=== PATIENT | female | born 1995 | race Caucasian/White ===

== ENCOUNTER 2019-09-06 14:04 | Inpatient (IN) ==
[2019-09-06 15:39] LABS: Urine TP Concentration 23 mg/dL
[2019-09-06] MEDS ORDERED: Lactated Ringers 1000 ml BAG 1,000 ML IV ONE (15:42)
[2019-09-06 17:02] LABS: ABS Basophils 0.1 10^3/ul (0-0.2); ABS Eosinophils 0.1 10^3/ul (0-0.6); ABS Lymphocytes 2.8 10^3/ul (1.0-4.8); ABS Monocytes 0.5 10^3/ul (0-0.8); Eosinophil % 0.7 %; Hematocrit 38 % (35-47); Hemoglobin 12.7 g/dL (12.0-16.0); Lymphocyte % 17.8 %; Mean Corpuscular HGB Conc 34 g/dL (31-36); Mean Corpuscular Hemoglobin 28 pg (27-31); Mean Corpuscular Volume 84 fL (80-97); Platelet Count 343 10^3/uL (150-450); Red Blood Count 4.51 10^6 /uL (3.70-4.87); Red Cell Distribution Width 14 % (10-15); White Blood Count 15.7 10^3/uL (3.5-10.8)
[2019-09-06 17:18] LABS: Albumin 3.4 g/dL (3.2-5.2); Albumin/Globulin Ratio 1.1 (1-3); BUN/Creatinine Ratio 24.1 (8-20); Calcium 9.4 mg/dL (8.6-10.3); EGFR African American 155.9 (>60); EGFR Non-African American 128.8 (>60); Globulin 3.2 g/dL (2-4); Potassium 4.1 mmol/L (3.5-5.0); Total Bilirubin 0.2 mg/dL (0.2-1.0); Total Protein 6.6 g/dL (6.4-8.9)
[2019-09-06 18:20] LABS: Urine Benzodiazepine Screen None Detected (None Detect); Urine Opiates Screen None Detected (None Detect)
[2019-09-06] MEDS ORDERED: Dinoprostone 10 MG VAG.SUPP VAGINAL ONE (20:11)
[2019-09-07] MEDS ORDERED: Oxytocin in LR 20 UNITS/1,000 ML BAG IVPB SCH (10:00)
[2019-09-07] MEDS: Lactated Ringers 1000 ml BAG 1,000 ML IV SCH (19:05)
[2019-09-07 19:54] LABS: ABS Basophils 0.1 10^3/ul (0-0.2); ABS Lymphocytes 1.8 10^3/ul (1.0-4.8); ABS Monocytes 0.6 10^3/ul (0-0.8); Eosinophil % 0.1 %; Hematocrit 36 % (35-47); Hemoglobin 12.2 g/dL (12.0-16.0); Lymphocyte % 8.9 %; Mean Corpuscular HGB Conc 34 g/dL (31-36); Mean Corpuscular Hemoglobin 28 pg (27-31); Mean Corpuscular Volume 82 fL (80-97); Platelet Count 317 10^3/uL (150-450); Red Blood Count 4.37 10^6 /uL (3.70-4.87); Red Cell Distribution Width 14 % (10-15); White Blood Count 20.6 10^3/uL (3.5-10.8)
[2019-09-07 20:17] LABS: Uric Acid 4.5 mg/dL (2.3-6.6)
[2019-09-07 21:22] LABS: Calcium 8.9 mg/dL (8.6-10.3); Potassium 3.9 mmol/L (3.5-5.0); Total Bilirubin 0.4 mg/dL (0.2-1.0)
[2019-09-07 21:27] LABS: Albumin/Globulin Ratio 1.2 (1-3); BUN/Creatinine Ratio 16.3 (8-20); EGFR African American 189.4 (>60); EGFR Non-African American 156.5 (>60); Globulin 2.5 g/dL (2-4); Total Protein 5.5 g/dL (6.4-8.9)
[2019-09-08] MEDS: Lactated Ringers 1000 ml BAG 1,000 ML IV SCH (00:30)
[2019-09-08] MEDS ORDERED: OBEPIDURAL 250 ML EPIDURAL ONE (00:59)
[2019-09-08] MEDS ORDERED: Lactated Ringers 1000 ml BAG 1,000 ML IV ONE (02:08)
[2019-09-08] MEDS ORDERED: EPHEDrine (Pressors) 50 MG/ML VIAL IV PUSH PRN ×2 (02:08)
[2019-09-08] MEDS ORDERED: Phenylephrine 40 mcg/mL 10mL (400mcg) SYRINGE IV PUSH PRN ×2 (02:08)
[2019-09-08] MEDS ORDERED: Sodium Citrate/Citric Acid LIQ 15 ML UDC PO PRN (02:08)
[2019-09-08] MEDS ORDERED: Sodium Citrate/Citric Acid LIQ 15 ML UDC ONE (02:31)
[2019-09-08] MEDS ORDERED: ceFOXitin 2 GM IVPREMIX 2 GM/50 ML BAG ONE (02:37)
[2019-09-08] MEDS ORDERED: Lidocaine 2% PF 10 ML AMP ONE (02:59)
[2019-09-08] MEDS ORDERED: Lactated Ringers 1000 ml BAG 1,000 ML IV SCH ×2 (03:00→05:00)
[2019-09-08] MEDS ORDERED: OBEPIDURAL 250 ML EPIDURAL SCH (03:00)
[2019-09-08] MEDS ORDERED: fentaNYL 100 mcg/2 ml 50 MCG/ML VIAL ONE (03:27)
[2019-09-08] MEDS ORDERED: Naloxone 0.4 mg VIAL 0.4 mg/ml 1 ml VIAL IV PRN ×2 (03:32→03:34)
[2019-09-08] MEDS ORDERED: fentaNYL 100 mcg/2 ml 50 MCG/ML VIAL IV PRN (03:32)
[2019-09-08] MEDS ORDERED: Ondansetron 4 mg VIAL 2 MG/ML 2 ml VIAL IV PRN ×2 (03:32→03:34)
[2019-09-08] MEDS ORDERED: DiMENhydriNATE IV 50 mg/ml 1 ml VIAL IV PUSH PRN (03:34)
[2019-09-08] MEDS ORDERED: Prochlorperazine 5 mg/ml 2 ml VIAL (10 mg) IV PRN (03:34)
[2019-09-08] MEDS ORDERED: diPHENhydraMINE IV 50 MG/ML 1 ml VIAL (BENADRYL) IV PRN (03:34)
[2019-09-08] MEDS ORDERED: Oxytocin 10 UNITS/ML 1 ML VIAL ONE (03:37)
[2019-09-08] MEDS ORDERED: Morphine PF AMP (0.5MG/ML) 5 MG/10 ML AMP ONE (03:38)
[2019-09-08] MEDS ORDERED: Ondansetron 4 mg VIAL 2 MG/ML 2 ml VIAL ONE (03:42)
[2019-09-08] MEDS ORDERED: Dibucaine 1% OINT 28.35 GM TUBE PR PRN (04:54)
[2019-09-08] MEDS ORDERED: Witch Hazel PAD JAR TOPICAL PRN (04:54)
[2019-09-08] MEDS ORDERED: Glycerin ADULT 2.4 gm SUPP PR PRN (04:54)
[2019-09-08] MEDS: oxyCODONE/Acetamin 5/325 mg TAB PO PRN ×4 (05:06→18:55)
[2019-09-09 07:55] LABS: ABS Basophils 0.1 10^3/ul (0-0.2); ABS Eosinophils 0.1 10^3/ul (0-0.6); ABS Lymphocytes 3.5 10^3/ul (1.0-4.8); ABS Monocytes 0.8 10^3/ul (0-0.8); Eosinophil % 0.9 %; Hematocrit 29 % (35-47); Hemoglobin 9.9 g/dL (12.0-16.0); Lymphocyte % 25.6 %; Mean Corpuscular HGB Conc 34 g/dL (31-36); Mean Corpuscular Hemoglobin 28 pg (27-31); Mean Corpuscular Volume 84 fL (80-97); Mean Platelet Volume 7.7 fL (7.4-10.4); Nucleated Red Blood Cells % 0.1; Platelet Count 311 10^3/uL (150-450); Red Blood Count 3.49 10^6 /uL (3.70-4.87); Red Cell Distribution Width 14 % (10-15); White Blood Count 13.6 10^3/uL (3.5-10.8)
[2019-09-09] MEDS ORDERED: Varicella Virus Vaccine Live 0.5 ML VIAL SUBCUT ONE (10:40)
[2019-09-10 07:45] VITALS: BP 140/70
[2019-09-11] MEDS ORDERED: Scopolamine PATCH Remove NOTE PATCH OFF PRN (03:34)
== END 2019-09-10 14:03 | disposition home or self-care (01) | DRG 540 ==
LOC: MCHOBOUT 14:04 → MCHOB 14:46
PROVIDERS: ADMIT Advanced Practice Midwife; ATTEND Obstetrics & Gynecology

== ENCOUNTER 2021-01-21 10:05 | Inpatient (IN) ==
[2021-01-21] MEDS ORDERED: Buffered Lidocaine 1% SYRIN 1 ml INTRADERM ONE (10:37)
[2021-01-21] MEDS ORDERED: Lactated Ringers 1000 ml BAG 1,000 ML IV SCH (11:00)
[2021-01-21 11:03] LABS: ABS Basophils 0.1 10^3/ul (0-0.2); ABS Eosinophils 0.1 10^3/ul (0-0.6); ABS Lymphocytes 2.3 10^3/ul (1.0-4.8); ABS Monocytes 0.6 10^3/ul (0-0.8); ABS Neutrophils 10.3 10^3/ul (1.5-7.7); Eosinophil % 0.8 %; Hematocrit 38 % (35-47); Hemoglobin 12.6 g/dL (12.0-16.0); Lymphocyte % 17.5 %; Mean Corpuscular HGB Conc 33 g/dL (31-36); Mean Corpuscular Hemoglobin 26 pg (27-31); Mean Corpuscular Volume 80 fL (80-97); Mean Platelet Volume 8.4 fL (7.4-10.4); Platelet Count 262 10^3/uL (150-450); Red Blood Count 4.79 10^6 /uL (3.70-4.87); Red Cell Distribution Width 14 % (10-15); White Blood Count 13.4 10^3/uL (3.5-10.8)
[2021-01-21 11:16] LABS: Urine Appearance Cloudy; Urine Bilirubin Negative (Negative); Urine Blood Negative (Negative); Urine Color Yellow; Urine Glucose Negative (Negative); Urine Ketones Negative (Negative); Urine Nitrite Negative (Negative); Urine Protein 2+(100 mg/dL) (Negative); Urine Urobilinogen Negative (Negative)
[2021-01-21 11:19] LABS: Urine Bacteria Absent (Absent); Urine Red Blood Cell Trace(0-2/hpf) (Absent); Urine Squamous Epithelial Cell Present (Absent); Urine White Blood Cell 1+(6-10/hpf) (Absent)
[2021-01-21 11:21] LABS: Urine Benzodiazepine Screen None Detected (None Detect); Urine Cannabinoids Screen None Detected (None Detect); Urine Opiates Screen None Detected (None Detect)
[2021-01-21 11:25] LABS: ALT 12 U/L (7-52); Albumin 3.2 g/dL (3.2-5.2); Alkaline Phosphatase 105 U/L (35-149); Blood Urea Nitrogen 15 mg/dL (6-24); CO2 Carbon Dioxide 19 mmol/L (22-32); Calcium 9.1 mg/dL (8.6-10.3); Chloride 106 mmol/L (101-111); Globulin 3.3 g/dL (2-4); Glucose 75 mg/dL (70-100); Sodium 133 mmol/L (135-145); Total Protein 6.5 g/dL (6.4-8.9)
[2021-01-21 11:47] LABS: Rapid COVID-19 Molecular Undetected (Undetected)
[2021-01-21 12:35] LABS: Uric Acid 3.2 mg/dL (2.3-6.6)
[2021-01-21 12:46] LABS: Anion Gap 8 mmol/L (2-11)
[2021-01-21 13:50] LABS: Potassium Redraw 4.1 mmol/L (3.5-5.0)
[2021-01-21] MEDS: Betamethasone 6 mg/ml 5 ml VIAL IM SCH (15:22)
[2021-01-22] MEDS ORDERED: Buffered Lidocaine 1% SYRIN 1 ml INTRADERM ONE (12:16)
[2021-01-22] MEDS: Betamethasone 6 mg/ml 5 ml VIAL IM SCH (15:21)
[2021-01-23 07:11] LABS: ABS Monocytes 0.6 10^3/ul (0-0.8); ABS Neutrophils 12.9 10^3/ul (1.5-7.7); Eosinophil % 0.1 %; Hematocrit 34 % (35-47); Hemoglobin 11.5 g/dL (12.0-16.0); Lymphocyte % 12.9 %; Mean Corpuscular HGB Conc 34 g/dL (31-36); Mean Corpuscular Hemoglobin 27 pg (27-31); Mean Corpuscular Volume 80 fL (80-97); Mean Platelet Volume 8.7 fL (7.4-10.4); Platelet Count 280 10^3/uL (150-450); Red Blood Count 4.31 10^6 /uL (3.70-4.87); Red Cell Distribution Width 14 % (10-15); White Blood Count 15.5 10^3/uL (3.5-10.8)
[2021-01-23 07:17] LABS: Calcium 8.7 mg/dL (8.6-10.3); Potassium 4.1 mmol/L (3.5-5.0); Total Bilirubin 0.3 mg/dL (0.2-1.0)
[2021-01-23 07:23] LABS: Albumin/Globulin Ratio 1.2 (1-3); Globulin 2.6 g/dL (2-4); Total Protein 5.6 g/dL (6.4-8.9)
[2021-01-23] MEDS ORDERED: Ondansetron 4 mg VIAL 2 MG/ML 2 ml VIAL ONE (08:33)
[2021-01-23] MEDS ORDERED: Oxytocin 10 UNITS/ML 1 ML VIAL ONE (08:33)
[2021-01-23] MEDS ORDERED: Morphine PF AMP (0.5MG/ML) 5 MG/10 ML AMP ONE (08:34)
[2021-01-23] MEDS ORDERED: Phenylephrine 40 mcg/mL 10mL (400mcg) SYRINGE ONE (08:34)
[2021-01-23] MEDS ORDERED: Sodium Citrate/Citric Acid LIQ 15 ML UDC PO ONE (08:37)
[2021-01-23] MEDS ORDERED: ceFAZolin 2 GM PREMIX 2 GM/50 ML BAG ONE (08:40)
[2021-01-23] MEDS ORDERED: Sodium Citrate/Citric Acid LIQ 15 ML UDC ONE (08:40)
[2021-01-23] MEDS ORDERED: diPHENhydraMINE IV 50 MG/ML 1 ml VIAL (BENADRYL) IV PRN (09:27)
[2021-01-23] MEDS ORDERED: Ondansetron 4 mg VIAL 2 MG/ML 2 ml VIAL IV PRN (09:27)
[2021-01-23] MEDS ORDERED: Naloxone 0.4 mg VIAL 0.4 mg/ml 1 ml VIAL IV PRN (09:27)
[2021-01-23] MEDS ORDERED: DiMENhydriNATE IV 50 mg/ml 1 ml VIAL IV PUSH PRN (09:27)
[2021-01-23] MEDS ORDERED: Acetaminophen IV 1 GM/100ML 100 ML IV PRN (09:29)
[2021-01-23] MEDS ORDERED: Dibucaine 1% OINT 28.35 GM TUBE PR PRN (10:53)
[2021-01-23] MEDS ORDERED: Witch Hazel PAD JAR TOPICAL PRN (10:53)
[2021-01-23] MEDS ORDERED: Glycerin ADULT 2.4 gm SUPP PR PRN (10:53)
[2021-01-23] MEDS ORDERED: Lactated Ringers 1000 ml BAG 1,000 ML IV SCH (11:00)
[2021-01-23] MEDS ORDERED: Oxytocin in LR 20 UNITS/1,000 ML BAG IVPB SCH (11:00)
[2021-01-24 06:53] LABS: ABS Eosinophils 0.1 10^3/ul (0-0.6); ABS Lymphocytes 2.9 10^3/ul (1.0-4.8); ABS Monocytes 0.9 10^3/ul (0-0.8); ABS Neutrophils 11.4 10^3/ul (1.5-7.7); Eosinophil % 0.6 %; Hematocrit 31 % (35-47); Hemoglobin 10.4 g/dL (12.0-16.0); Lymphocyte % 18.8 %; Mean Corpuscular HGB Conc 33 g/dL (31-36); Mean Corpuscular Hemoglobin 27 pg (27-31); Mean Corpuscular Volume 81 fL (80-97); Mean Platelet Volume 8.3 fL (7.4-10.4); Platelet Count 267 10^3/uL (150-450); Red Blood Count 3.87 10^6 /uL (3.70-4.87); Red Cell Distribution Width 14 % (10-15); White Blood Count 15.4 10^3/uL (3.5-10.8)
[2021-01-25 10:55] VITALS: BP 160/87
== END 2021-01-25 10:59 | disposition home or self-care (01) | DRG 540 ==
LOC: MCHOBOUT 10:05 → MCHOB 10:46
PROVIDERS: ADMIT Obstetrics & Gynecology; ATTEND Obstetrics & Gynecology